=== PATIENT | female | born 1955 | race Caucasian/White ===

== ENCOUNTER 2023-08-16 11:22 | Inpatient (IN) | payer BC, MEDICAID ==
[~2023-08-16] VITALS: Ht 172.7 cm; Wt 99.7 kg
[2023-08-16 11:48] LABS: BASOPHILS % (AUTO) 0.6 % (0-1); EOSINOPHILS # (AUTO) 0.1 X10'3 (0-0.9); EOSINOPHILS % (AUTO) 0.7 % (0-6); HEMOGLOBIN 15.4 g/dl (12.0-16.0); LYMPHOCYTES # (AUTO) 1.7 X10'3 (1.1-4.8); LYMPHOCYTES % (AUTO) 22.8 % (21-51); MEAN CORPUSCULAR HEMOGLOBIN 28.9 PG (27.0-31.0); MEAN CORPUSCULAR HGB CONC 33.3 g/dL (33.0-36.5); MEAN CORPUSCULAR VOLUME 86.8 FL (78-98); MEAN PLATELET VOLUME 8.6 FL (7.4-10.4); MONOCYTES # (AUTO) 0.4 X10'3 (0-0.9); MONOCYTES % (AUTO) 5.7 % (2-12); NEUTROPHILS # (AUTO) 5.4 X10'3 (1.8-7.7); NEUTROPHILS % (AUTO) 70.2 % (42-75); PLATELET COUNT 217 X10'3 (140-440); RED BLOOD COUNT 5.31 X10'6 (4.20-5.60); RED CELL DISTRIBUTION WIDTH 15.3 % (11.5-14.5); WHITE BLOOD COUNT 7.7 X10'3 (4.5-11.0)
[2023-08-16 11:53] LABS: BILIRUBIN,URINE NEGATIVE (Neg); CLARITY,URINE SLIGHTLY CLOUDY (Clear); COLOR,URINE STRAW (Yellow); GLUCOSE, URINE >=1000 mg/dl (Neg); KETONES,URINE NEGATIVE (Neg); LEUKOCYTE ESTERASE ,URINE NEGATIVE (Neg); NITRITES, URINE NEGATIVE (Neg); OCCULT BLOOD,URINE NEGATIVE (Neg); PH,URINE 5.5 (4.8-8.0); PROTEIN,URINE NEGATIVE (Neg); UROBILINOGEN,URINE 0.2 E.U/dL (0.2-1.0)
[2023-08-16 11:55] LABS: UA COLLECTION TYPE CLN CATCH MIDSTREAM
[2023-08-16 12:14] LABS: ALANINE AMINOTRANSFERASE 44 U/L (12-78); ALBUMIN 3.7 G/DL (3.4-5.0); ALKALINE PHOSPHATASE 218 IU/L (46-116); ANION GAP 11 (8-16); ASPARTATE AMINO TRANSFERASE 14 U/L (10-37); BILIRUBIN,TOTAL 0.7 MG/DL (0.1-1.0); BLOOD UREA NITROGEN 11 MG/DL (7-18); BUN/CREATININE RATIO 9.8 (10.0-20.0); CALCIUM 9.6 MG/DL (8.5-10.1); CHLORIDE 94 MMOL/L (99-107); CREATININE 1.12 MG/DL (0.40-0.90); LIPASE 36 U/L (16-77); SODIUM 130 MMOL/L (135-145); TOTAL CARBON DIOXIDE 24.8 MMOL/L (24-32); TOTAL PROTEIN 7.5 G/DL (6.4-8.2); eCRCL 49 ML/MIN; eGFR 49 ML/MIN
[2023-08-16 12:25] LABS: GLUCOSE 590 MG/DL (70-104)
[2023-08-16 12:38] LABS: SQUAMOUS EPITHELIAL CELL,UR MODERATE /LPF (FEW)
[2023-08-16 12:39] LABS: WBC CLUMPS,URINE MODERATE /HPF (NEGATIVE)
[2023-08-16 12:40] LABS: WBC,URINE 30-50 /HPF (0-4)
[2023-08-16] MEDS ORDERED: insulin regular, human 10 units/0.1 ml syringe IV ONE ×2 (12:40→12:55)
[2023-08-16] MEDS ORDERED: normal saline 1000ml 1,000 ML IV ONE ×3 (12:40→12:55)
[2023-08-16] MEDS ORDERED: insulin regular, human 10 units/0.1 ml syringe SQ ONE (12:40)
[2023-08-16 12:44] LABS: BACTERIA,URINE 2+ /HPF (Neg)
[2023-08-16 12:45] LABS: RBC,URINE 0-2 /HPF (0-2)
[2023-08-16 13:02] LABS: YEAST MODERATE /HPF (NEGATIVE)
[2023-08-16 14:16] LABS: ACETONE NEGATIVE (NEGATIVE)
[2023-08-16] MEDS ORDERED: levoFLOXACIN-Levaquin 500mg/D5 100 ML IV ONE (14:40)
[2023-08-16] MEDS ORDERED: dextrose 50%-water 50ml dispensing syringe IV PRN ×2 (16:00)
[2023-08-16] MEDS ORDERED: potassium Cl 40MEQ/1/2NS 520ml 520 ML IV PRN (16:00)
[2023-08-16] MEDS ORDERED: magnesium Cl slow-release 64mg tablet PO PRN (16:00)
[2023-08-16] MEDS ORDERED: bisacodyl 10mg suppository rectal RC PRN (16:00)
[2023-08-16] MEDS ORDERED: DEXTROSE 15 GM of carb/4 tabs (each vial/BOTTLE has 4 tablets) PO PRN ×2 (16:00)
[2023-08-16] MEDS ORDERED: magnesium hydroxide 30ml (MOM) UD suspension PO PRN (16:00)
[2023-08-16] MEDS ORDERED: ondansetron/PF 4mg/2ml inj IV PRN (16:00)
[2023-08-16] MEDS ORDERED: mag hydrox/Alum hydrox/simeth 30ml oral suspension PO PRN (16:00)
[2023-08-16] MEDS ORDERED: MESSAGE TO PHARMACY PO ONE (16:00)
[2023-08-16] MEDS ORDERED: acetaminophen 650mg rectal suppository RC PRN (16:00)
[2023-08-16] MEDS ORDERED: magnesium 2GM in 50ml NS 50 ML IV PRN (16:00)
[2023-08-16] MEDS ORDERED: potassium Cl 20 mEq SR tablet PO PRN ×2 (16:00)
[2023-08-16] MEDS ORDERED: diphenhydrAMINE 25mg capsule PO PRN (16:00)
[2023-08-16] MEDS ORDERED: glucagon, human recombinant 1mg kit SUBCUT PRN (16:00)
[2023-08-16] MEDS ORDERED: magnesium 4gm in 100ml NS 100 ML IV PRN (16:00)
[2023-08-16] MEDS ORDERED: PERFLUTREN PROTEIN-A MICROSPHR (Optison) 0.22 MG/ML 3ML VIAL IV ONE (16:00)
[2023-08-16] MEDS ORDERED: acetaminophen 325mg tablet PO PRN ×2 (16:00)
[2023-08-16 17:00] LABS: HEMOGLOBIN A1C > 12.0 % (4.5-6.2)
[2023-08-16] MEDS: K and/or MAG REPLACEMENT MC SCH (20:00)
[2023-08-16] MEDS: heparin, porcine 5000 units/ml vial SQ SCH (20:49)
[2023-08-16] MEDS: docusate sod 100mg capsule PO SCH (20:49)
[2023-08-16] MEDS: pantoprazole 40 MG vial IV SCH (21:01)
[2023-08-16] MEDS: normal saline 1000ml 1,000 ML IV SCH (21:01)
[2023-08-16] MEDS ORDERED: ROPI5TAB24 PO (21:21)
[2023-08-16] MEDS ORDERED: AMLO5TAB16 PO (21:21)
[2023-08-16] MEDS ORDERED: HYDR-3686 PO (21:21)
[2023-08-16] MEDS ORDERED: METF-438 PO (21:21)
[2023-08-16] MEDS ORDERED: PANT40TA54 PO (21:21)
[2023-08-16] MEDS: insulin glargine (Lantus) pen - multi-dose SQ SCH (21:32)
[2023-08-16] MEDS: HYDROcodone/acetaminophen 5mg/325mg tablet PO PRN (21:32)
[2023-08-16] MEDS: insulin Lispro (HumaLOG) vial - multi-dose SQ SCH (22:19)
[2023-08-17] MEDS: normal saline 1000ml 1,000 ML IV SCH ×3 (01:58→20:31)
[2023-08-17] MEDS: HYDROcodone/acetaminophen 5mg/325mg tablet PO PRN ×4 (02:55→23:26)
[2023-08-17] MEDS: K and/or MAG REPLACEMENT MC SCH ×2 (08:00→20:00)
[2023-08-17 08:20] LABS: BASOPHILS % (AUTO) 0.6 % (0-1); EOSINOPHILS # (AUTO) 0.1 X10'3 (0-0.9); EOSINOPHILS % (AUTO) 2.2 % (0-6); HEMATOCRIT 40.4 % (35.0-45.0); HEMOGLOBIN 13.4 g/dl (12.0-16.0); LYMPHOCYTES % (AUTO) 44.1 % (21-51); MEAN CORPUSCULAR HEMOGLOBIN 29.1 PG (27.0-31.0); MEAN CORPUSCULAR HGB CONC 33.2 g/dL (33.0-36.5); MEAN CORPUSCULAR VOLUME 87.5 FL (78-98); MEAN PLATELET VOLUME 8.5 FL (7.4-10.4); MONOCYTES # (AUTO) 0.2 X10'3 (0-0.9); MONOCYTES % (AUTO) 4.9 % (2-12); NEUTROPHILS # (AUTO) 2.2 X10'3 (1.8-7.7); NEUTROPHILS % (AUTO) 48.2 % (42-75); PLATELET COUNT 147 X10'3 (140-440); RED BLOOD COUNT 4.62 X10'6 (4.20-5.60); RED CELL DISTRIBUTION WIDTH 15.3 % (11.5-14.5); WHITE BLOOD COUNT 4.6 X10'3 (4.5-11.0)
[2023-08-17 08:38] LABS: ALANINE AMINOTRANSFERASE 34 U/L (12-78); ALBUMIN/GLOBULIN RATIO 0.9 (1.1-1.5); ALKALINE PHOSPHATASE 113 IU/L (46-116); ANION GAP 8 (8-16); ASPARTATE AMINO TRANSFERASE 25 U/L (10-37); BILIRUBIN,TOTAL 0.5 MG/DL (0.1-1.0); BLOOD UREA NITROGEN 10 MG/DL (7-18); CALCIUM 8.3 MG/DL (8.5-10.1); CHLORIDE 104 MMOL/L (99-107); CHOL/HDL RATIO 4.8 (0.00-4.99); CHOLESTEROL 211 MG/DL (0-200); CREATININE 0.77 MG/DL (0.40-0.90); GLUCOSE 288 MG/DL (70-104); HDL CHOLESTEROL 44 MG/DL (35-60); LDL CHOLESTEROL 85 MG/DL (50-100); MAGNESIUM 1.8 MG/DL (1.5-2.4); PHOSPHORUS 2.9 MG/DL (2.3-4.5); POTASSIUM 3.8 MMOL/L (3.5-5.1); SODIUM 137 MMOL/L (135-145); TOTAL CARBON DIOXIDE 24.8 MMOL/L (24-32); TOTAL PROTEIN 6.2 G/DL (6.4-8.2); TRIGLYCERIDES 594 MG/DL (20-135); eCRCL 72 ML/MIN; eGFR 75 ML/MIN
[2023-08-17] MEDS: levoFLOXACIN-Levaquin 500mg/D5 100 ML IV SCH (09:51)
[2023-08-17] MEDS: pantoprazole 40 MG vial IV SCH (09:52)
[2023-08-17] MEDS: docusate sod 100mg capsule PO SCH ×2 (09:52→20:04)
[2023-08-17] MEDS: heparin, porcine 5000 units/ml vial SQ SCH ×2 (09:54→20:05)
[2023-08-17] MEDS: insulin Lispro (HumaLOG) vial - multi-dose SQ SCH ×4 (10:06→21:31)
[2023-08-17 11:45] VITALS: BP_SYST 134; BP_SYST 136; BP_DIAS 59; BP_DIAS 64; BP_DIAS 80; PULSE 70; PULSE 71; PULSE 80; RESP 16; TEMP 98.4; O2SAT 96
[2023-08-17 18:02] VITALS: BP_SYST 144; BP_SYST 159; BP_DIAS 64; BP_DIAS 73; PULSE 68; PULSE 74
[2023-08-17 18:03] VITALS: BP 150/76; PULSE 78
[2023-08-17 20:00] VITALS: BP 134/80; PULSE 80
[2023-08-17] MEDS: insulin glargine (Lantus) pen - multi-dose SQ SCH (21:32)
[2023-08-18] VITALS (7 sets, daily range): BP systolic 110–153; BP diastolic 5–78; PULSE 70–89; RESP 12–16; TEMP 97.1–98.1; O2SAT 96–98
[2023-08-18] MEDS: HYDROcodone/acetaminophen 5mg/325mg tablet PO PRN ×4 (03:38→19:49)
[2023-08-18 05:49] LABS: ALANINE AMINOTRANSFERASE 31 U/L (12-78); ALBUMIN 2.6 G/DL (3.4-5.0); ALBUMIN/GLOBULIN RATIO 0.9 (1.1-1.5); ALKALINE PHOSPHATASE 89 IU/L (46-116); ANION GAP 7 (8-16); ASPARTATE AMINO TRANSFERASE 24 U/L (10-37); BILIRUBIN,TOTAL 0.4 MG/DL (0.1-1.0); BLOOD UREA NITROGEN 9 MG/DL (7-18); CALCIUM 8.2 MG/DL (8.5-10.1); CHLORIDE 106 MMOL/L (99-107); CREATININE 0.69 MG/DL (0.40-0.90); GLUCOSE 184 MG/DL (70-104); MAGNESIUM 1.7 MG/DL (1.5-2.4); PHOSPHORUS 3.7 MG/DL (2.3-4.5); POTASSIUM 3.6 MMOL/L (3.5-5.1); SODIUM 139 MMOL/L (135-145); TOTAL CARBON DIOXIDE 25.6 MMOL/L (24-32); TOTAL PROTEIN 5.5 G/DL (6.4-8.2); eCRCL 80 ML/MIN; eGFR 85 ML/MIN
[2023-08-18 05:52] LABS: BASOPHILS % (AUTO) 0.6 % (0-1); EOSINOPHILS # (AUTO) 0.2 X10'3 (0-0.9); EOSINOPHILS % (AUTO) 5.3 % (0-6); HEMATOCRIT 38.8 % (35.0-45.0); HEMOGLOBIN 13.1 g/dl (12.0-16.0); LYMPHOCYTES # (AUTO) 1.7 X10'3 (1.1-4.8); LYMPHOCYTES % (AUTO) 41.4 % (21-51); MEAN CORPUSCULAR HEMOGLOBIN 29.4 PG (27.0-31.0); MEAN CORPUSCULAR HGB CONC 33.8 g/dL (33.0-36.5); MEAN CORPUSCULAR VOLUME 87.1 FL (78-98); MONOCYTES # (AUTO) 0.3 X10'3 (0-0.9); MONOCYTES % (AUTO) 6.6 % (2-12); NEUTROPHILS # (AUTO) 1.9 X10'3 (1.8-7.7); NEUTROPHILS % (AUTO) 46.1 % (42-75); PLATELET COUNT 127 X10'3 (140-440); RED BLOOD COUNT 4.45 X10'6 (4.20-5.60); RED CELL DISTRIBUTION WIDTH 14.9 % (11.5-14.5)
[2023-08-18] MEDS: levoFLOXACIN-Levaquin 500mg/D5 100 ML IV SCH (07:39)
[2023-08-18] MEDS: docusate sod 100mg capsule PO SCH ×2 (07:40→19:49)
[2023-08-18] MEDS: pantoprazole 40 MG vial IV SCH (07:40)
[2023-08-18] MEDS: heparin, porcine 5000 units/ml vial SQ SCH ×2 (07:40→19:49)
[2023-08-18] MEDS: K and/or MAG REPLACEMENT MC SCH ×2 (08:00→20:00)
[2023-08-18] MEDS: normal saline 1000ml 1,000 ML IV SCH ×2 (08:00→18:00)
[2023-08-18] MEDS: insulin Lispro (HumaLOG) vial - multi-dose SQ SCH ×3 (09:24→19:43)
[2023-08-18] MEDS: losartan 50mg tablet PO SCH (13:25)
[2023-08-18] MEDS: hydrOXYzine 25 MG tablet PO PRN ×2 (13:28→19:49)
[2023-08-18] MEDS: pantoprazole 40mg Tablet.DR PO SCH (19:49)
[2023-08-18] MEDS: ROPINIRole 1mg tablet PO SCH (19:53)
[2023-08-18] MEDS: insulin glargine (Lantus) pen - multi-dose SQ SCH (21:11)
[2023-08-19] MEDS: HYDROcodone/acetaminophen 5mg/325mg tablet PO PRN ×3 (01:43→13:52)
[2023-08-19 06:00] VITALS: BP 121/53; PULSE 72; RESP 14; TEMP 97.3; O2SAT 100
[2023-08-19 06:24] LABS: ALANINE AMINOTRANSFERASE 43 U/L (12-78); ALBUMIN 2.9 G/DL (3.4-5.0); ALBUMIN/GLOBULIN RATIO 0.9 (1.1-1.5); ALKALINE PHOSPHATASE 95 IU/L (46-116); ANION GAP 7 (8-16); ASPARTATE AMINO TRANSFERASE 34 U/L (10-37); BILIRUBIN,TOTAL 0.4 MG/DL (0.1-1.0); BLOOD UREA NITROGEN 10 MG/DL (7-18); BUN/CREATININE RATIO 14.1 (10.0-20.0); CALCIUM 8.6 MG/DL (8.5-10.1); CHLORIDE 103 MMOL/L (99-107); CREATININE 0.71 MG/DL (0.40-0.90); GLUCOSE 300 MG/DL (70-104); PHOSPHORUS 4.4 MG/DL (2.3-4.5); POTASSIUM 3.9 MMOL/L (3.5-5.1); SODIUM 135 MMOL/L (135-145); TOTAL CARBON DIOXIDE 24.6 MMOL/L (24-32); eCRCL 78 ML/MIN; eGFR 82 ML/MIN
[2023-08-19 06:28] LABS: BASOPHILS % (AUTO) 0.4 % (0-1); EOSINOPHILS # (AUTO) 0.2 X10'3 (0-0.9); EOSINOPHILS % (AUTO) 3.9 % (0-6); HEMATOCRIT 39.4 % (35.0-45.0); HEMOGLOBIN 13.6 g/dl (12.0-16.0); LYMPHOCYTES # (AUTO) 1.5 X10'3 (1.1-4.8); LYMPHOCYTES % (AUTO) 35.5 % (21-51); MEAN CORPUSCULAR HEMOGLOBIN 29.7 PG (27.0-31.0); MEAN CORPUSCULAR HGB CONC 34.4 g/dL (33.0-36.5); MEAN CORPUSCULAR VOLUME 86.3 FL (78-98); MEAN PLATELET VOLUME 8.9 FL (7.4-10.4); MONOCYTES # (AUTO) 0.3 X10'3 (0-0.9); MONOCYTES % (AUTO) 6.5 % (2-12); NEUTROPHILS # (AUTO) 2.2 X10'3 (1.8-7.7); NEUTROPHILS % (AUTO) 53.7 % (42-75); PLATELET COUNT 146 X10'3 (140-440); RED BLOOD COUNT 4.56 X10'6 (4.20-5.60); WHITE BLOOD COUNT 4.2 X10'3 (4.5-11.0)
[2023-08-19] MEDS: K and/or MAG REPLACEMENT MC SCH (06:56)
[2023-08-19] MEDS: ROPINIRole 1mg tablet PO SCH (07:40)
[2023-08-19] MEDS: docusate sod 100mg capsule PO SCH (07:41)
[2023-08-19] MEDS: pantoprazole 40mg Tablet.DR PO SCH (07:41)
[2023-08-19] MEDS: losartan 50mg tablet PO SCH (07:41)
[2023-08-19] MEDS: heparin, porcine 5000 units/ml vial SQ SCH (07:42)
[2023-08-19 08:00] VITALS: BP_SYST 142; BP_SYST 158; BP_DIAS 67; BP_DIAS 81; PULSE 78; RESP 14; O2SAT 100
[2023-08-19] MEDS ORDERED: amLODIPine 5mg tablet PO SCH (08:00)
[2023-08-19] MEDS: insulin Lispro (HumaLOG) vial - multi-dose SQ SCH ×2 (09:12→13:51)
[2023-08-19] MEDS: normal saline 1000ml 1,000 ML IV SCH (09:38)
[2023-08-19] MEDS: levoFLOXACIN-Levaquin 500mg/D5 100 ML IV SCH (09:38)
[2023-08-19 10:00] VITALS: BP 103/64; PULSE 72; RESP 18; TEMP 97.7; O2SAT 95
[2023-08-19] MEDS ORDERED: LOSA50TA64 PO (12:41)
[2023-08-19] MEDS ORDERED: GLIM1TAB6 PO (12:44)
[2023-08-19] MEDS ORDERED: CIPR-259 PO (12:44)
[2023-08-19 13:52] VITALS: RESP 16
[2023-08-19] MEDS ORDERED: ATOR20TA66 PO (14:13)
== END 2023-08-19 14:10 | disposition home or self-care (01) | DRG 637 ==
LOC: ER 11:23 → ED HOLD 16:03 → ORTHO 4S 08-17 11:20
PROVIDERS: ADMIT Family Medicine; ATTEND Family Medicine
DX: E11.65 Type 2 diabetes mellitus with hyperglycemia (principal); N17.0 Acute kidney failure with tubular necrosis; E87.1 Hypo-osmolality and hyponatremia; N39.0 Urinary tract infection, site not specified; E86.0 Dehydration; F41.9 Anxiety disorder, unspecified; K76.0 Fatty (change of) liver, not elsewhere classified; I10 Essential (primary) hypertension; B96.1 Klebsiella pneumoniae [K. pneumoniae] as the cause of diseases classified elsewhere; K21.9 Gastro-esophageal reflux disease without esophagitis; Z88.1 Allergy status to other antibiotic agents; Z87.442 Personal history of urinary calculi; Z80.0 Family history of malignant neoplasm of digestive organs; Z79.84 Long term (current) use of oral hypoglycemic drugs; Z79.899 Other long term (current) drug therapy
CPT/HCPCS: 36415; 70551; 71045; 74176; 80053; 80061; 81001; 82009; 82948; 83036; 83605; 83690; 83735; 84100; 84145; 85025; 87040; 87077; 87081; 87088; 87186; 87502; 87503; 87811; 93306; 93880; 96361; 96365; 96372; 97116; 97161; 97530; 99285; A6258; C9113; G0378; J1644; J1815; J1956; J2405; J7030; Q0177